=== PATIENT | female | born 1980 | race Caucasian/White ===

== ENCOUNTER → 2018-11-08 10:23 | Outpatient (CLI) | payer OTHER, MEDICAID, SELFPAY ==
--- NOTE | 2018-11-08 10:26 | DI.RAD.S_ITS ---
PROCEDURE: XR SACRUM COCCYX MIN 2V INDICATIONS: fall onto coccyx w pain TECHNIQUE: 3 views of the sacrum and coccyx acquired. COMPARISON: None. FINDINGS: Bones: No definite acute fractures or dislocation. Anterior angulation of the coccyx is felt to unlikely represent acute fracture. No suspicious bony lesions. SI joints are symmetric. Soft tissues: Visualized bowel gas pattern is normal. No suspicious soft tissue densities. IUD in the pelvis. IMPRESSION: Anterior angulation of the coccyx which is felt to be within normal limits and unlikely to represent an acute fracture. No sacral fracture. Followup radiographs in 7-10 days may be helpful for further evaluation if pain persists. Dictated by: Christiano Burger M.D. on 11/08/2018 at 10:59 Approved by: Christiano Burger M.D. on 11/08/2018 at 11:03
== END ==
PROVIDERS: PCP Family Medicine; Visit Provider Family Medicine
DX: S30.0XXA Contusion of lower back and pelvis, initial encounter (principal); W19.XXXA Unspecified fall, initial encounter
CPT/HCPCS: 72220

== ENCOUNTER → 2023-02-08 10:11 | Outpatient (CLI) | payer OTHER, SELFPAY ==
--- NOTE | 2023-02-08 10:12 | DI.US.S_ITS ---
PROCEDURE: US PELVIC COMPLETE INDICATIONS: CRAMPING. HISTORY OF INTRAUTERINE DEVICE. TECHNIQUE: Real-time scanning was performed of the pelvic organs, with image documentation. Additional endovaginal scanning was necessary due to incomplete visualization of the adnexal and endometrial structures by transabdominal scanning. COMPARISON: [facility], US, PELVIC COMPLETE, 03/17/2010, 9:13. FINDINGS: Uterus: Uterus is anteverted and normal in size at 8.4 x 4.8 x 3.6 cm. The myometrium is homogeneous. The endometrium measures 6.9 mm combined thickness. Intrauterine device appears within appropriate position in the fundus. Trace anechoic fluid is seen within the cervix. Ovaries: The right ovary measures 3.6 x 2.1 x 1.9 cm, with a calculated ovarian volume of 7.5 cc. The left ovary measures 3.6 x 2.3 x 1.6 cm, with a calculated ovarian volume of 6.9 cc. The ovaries have a normal sonographic appearance. Less than 12 follicles can be seen in each ovary. No adnexal masses are seen. Other: No pathologic free abdominal or pelvic fluid. IMPRESSION: 1. Intrauterine device appears in appropriate position. Trace fluid within the fundus, nonspecific. 2. Ovaries are within normal limits. We strive to produce accurate, complete, and clear reports of imaging services. To assist us in improving patient care, this report was composed using standard report templates and voice recognition software. Therefore, it may contain abnormal punctuation, insertions and/or omissions. Occasional wrong-word or sound-alike substitutions may occur. Though we review the report and make efforts to correct it, we do recommend that the report be read carefully in proper context to recognize any text inaccuracies. Dictated by: Chan Heath M.D. on 02/08/2023 at 15:38 Approved by: Chan Heath M.D. on 02/08/2023 at 15:39
== END ==
PROVIDERS: PCP Family Medicine; Referring Provider Student in an Organized Health Care Education/Training Program; Visit Provider Student in an Organized Health Care Education/Training Program
DX: R10.9 Unspecified abdominal pain (principal); Z97.5 Presence of (intrauterine) contraceptive device
CPT/HCPCS: 76830; 76856